=== PATIENT | male | born 1970 | race Caucasian/White ===

== ENCOUNTER 2017-02-26 18:29 | Emergency (ER) | payer SELFPAY ==
[2017-02-26 18:42] VITALS: BP 120/69
[2017-02-26] MEDS ORDERED: NORMAL SALINE 1000 ML 1,000 ML IV ONE (19:38)
--- NOTE | 2017-02-26 19:42 | ER Document Report ---
ED Medical Screen (RME) - General Chief Complaint: Abdominal Pain Stated Complaint: POSSIBLE UMBILICAL HERNIA Time Seen by Provider: 02/26/17 19:38 Notes: Patient was referred from his primary care physician secondary to an umbilical hernia that she could not fully reduce. Patient states he is eating normally. He says he has no vomiting. He says he did start to have umbilical pain about 2 days ago however and there was some "heat" around the area. He states the "heat" has now dissipated but he still has pain around this area. He states he has never been told he has an umbilical hernia before today. No fevers. Exam shows a firm nonreducible mass in the umbilicus. However since patient has normal vital signs, no fevers, is eating normally, has no vomiting, the mass is very small, there is no significant discoloration, there is no warmth, it seems unlikely that this is incarcerated bowel or even mesentery. TRAVEL OUTSIDE OF THE [place] IN LAST 30 DAYS: No - Related Data Allergies/Adverse Reactions: No Known Allergies Allergy (Verified 02/26/17 18:30) Past Medical History - Social History Frequency of alcohol use: Social Drug Abuse: None Renal/ Medical History: Denies: Hx Peritoneal Dialysis - Immunizations Hx Diphtheria, Pertussis, Tetanus Vaccination: Yes Physical Exam - Vital signs Vitals: Temp Pulse Resp BP Pulse Ox 98.2 F 84 15 120/69 90 L 02/26/17 18:42 02/26/17 18:42 02/26/17 18:42 02/26/17 18:42 02/26/17 18:42 Course - Vital Signs Vital signs: Temp Pulse Resp BP Pulse Ox 98.2 F 84 15 120/69 90 L 02/26/17 18:42 02/26/17 18:42 02/26/17 18:42 02/26/17 18:42 02/26/17 18:42
[2017-02-26 20:35] LABS: ABSOLUTE BASOPHILS # (AUTO) 0.1 10^3/uL (0.0-0.2); ABSOLUTE EOSINOPHILS # (AUTO) 0.2 10^3/uL (0.0-0.6); ABSOLUTE LYMPHOCYTES (AUTO) 3.1 10^3/uL (0.5-4.7); ABSOLUTE MONOCYTES (AUTO) 0.6 10^3/uL (0.1-1.4); ABSOLUTE NEUT (AUTO) 4.7 10^3/uL (1.7-8.2); BASOPHILS % (AUTO) 0.7 % (0-2); EOSINOPHILS % (AUTO) 2.2 % (0-6); HEMATOCRIT 45.4 % (37.9-51.0); HEMOGLOBIN 15.7 g/dL (13.5-17.0); HGB HCT DIFFERENCE 1.7; LYMPHOCYTES % (AUTO) 35.5 % (13-45); MEAN CORPUSCULAR HEMOGLOBIN 31.1 pg (27.0-33.4); MEAN CORPUSCULAR HGB CONC 34.7 g/dL (32.0-36.0); MEAN CORPUSCULAR VOLUME 90 fl (80-97); MONOCYTES % (AUTO) 6.7 % (3-13); RED BLOOD COUNT 5.06 10^6/uL (4.35-5.55); RED CELL DISTRIBUTION WIDTH 12.9 % (11.5-14.0); SEGMENTED NEUTROPHILS % (AUTO) 54.9 % (42-78); WHITE BLOOD COUNT 8.7 10^3/uL (4.0-10.5)
[2017-02-26 20:46] LABS: APPEARANCE,URINE CLEAR; BILIRUBIN,URINE NEGATIVE (NEGATIVE); GLUCOSE, URINE NEGATIVE (NEGATIVE); KETONES,URINE NEGATIVE (NEGATIVE); LEUKOCYTE ESTERASE,URINE NEGATIVE (NEGATIVE); NITRITE,URINE NEGATIVE (NEGATIVE); PROTEIN,URINE NEGATIVE (NEGATIVE); UROBILINOGEN,URINE NEGATIVE mg/dL (<2.0)
[2017-02-26 20:55] LABS: ALANINE AMINOTRANSFERASE 56 U/L (21-72); ALBUMIN 4.6 g/dL (3.5-5.0); ALKALINE PHOSPHATASE 65 U/L (38-126); ANION GAP 11 (5-19); ASPARTATE AMINO TRANSFERASE 32 U/L (17-59); BILIRUBIN,DIRECT 0.3 mg/dL (0.0-0.4); BILIRUBIN,TOTAL 0.6 mg/dL (0.2-1.3); BLOOD UREA NITROGEN 22 mg/dL (7-20); CALCIUM 9.7 mg/dL (8.4-10.2); CARBON DIOXIDE 29 mmol/L (22-30); CHLORIDE 103 mmol/L (98-107); GLUCOSE 107 mg/dL (75-110); POTASSIUM 4.7 mmol/L (3.6-5.0); SODIUM 143.4 mmol/L (137-145); TOTAL PROTEIN 7.1 g/dL (6.3-8.2)
--- NOTE | 2017-02-26 23:53 | RADIOLOGY REPORT (SQ) ---
Exam: CT abdomen pelvis with contrast. CLINICAL HISTORY: Abdominal pain. COMPARISON: None. TECHNIQUE: 100 mL [id number]. Limitations: None. FINDINGS: 2.7 cm inflamed umbilical fat only herniation. No significant free fluid. No obstruction. Small colonic diverticulosis. Normal appendix. Inferior chest, liver, spleen, adrenals, pancreas, gallbladder, renal system, gastrointestinal tract, pelvic organs, and musculoskeletal skeleton appear otherwise unremarkable. IMPRESSION: 1. Small inflammation associated with a 2.7 cm fat only umbilical hernia. 2. Small colonic diverticulosis.
--- NOTE | 2017-02-27 01:25 | ER Document Report ---
ED General - General Chief Complaint: Abdominal Pain Stated Complaint: POSSIBLE UMBILICAL HERNIA Time Seen by Provider: 02/26/17 19:38 Notes: Patient is a 46-year-old male who presents with 3-4 days of progressively worsening umbilical pain. Patient saw his primary care doctor today and was referred to the hospital for concerns of an incarcerated umbilical hernia. He does describe a constant, throbbing pain to the affected area. Touching the area worsens the pain. He has been trying naproxen with moderate improvement of the pain. He denies any history of similar symptoms in the past. He has not had any vomiting and notes that he continues to have bowel movements and pass flatus without any difficulty. He has not had any fever or constitutional symptoms. TRAVEL OUTSIDE OF THE [place] IN LAST 30 DAYS: No - Related Data Allergies/Adverse Reactions: No Known Allergies Allergy (Verified 02/26/17 18:30) Past Medical History - General Information source: Patient - Social History Smoking Status: Current Every Day Smoker Frequency of alcohol use: Social Drug Abuse: None Lives with: Spouse/Significant other Family History: Reviewed & Not Pertinent Patient has suicidal ideation: No Patient has homicidal ideation: No Renal/ Medical History: Denies: Hx Peritoneal Dialysis - Immunizations Hx Diphtheria, Pertussis, Tetanus Vaccination: Yes Review of Systems - Review of Systems Notes: Constitutional: Negative for fever. HENT: Negative for sore throat. Eyes: Negative for visual changes. Cardiovascular: Negative for chest pain. Respiratory: Negative for shortness of breath. Gastrointestinal: Positive for umbilical hernia pain Genitourinary: Negative for dysuria. Musculoskeletal: Negative for back pain. Skin: Negative for rash. Neurological: Negative for headaches, weakness or numbness. 10 point ROS negative except as marked above and in HPI. Physical Exam - Vital signs Vitals: Temp Pulse Resp BP Pulse Ox 98.2 F 84 15 120/69 90 L 02/26/17 18:42 02/26/17 18:42 02/26/17 18:42 02/26/17 18:42 02/26/17 18:42 Patient is not hypoxic and the number is recorded is inaccurate Interpretation: Normal Notes: PHYSICAL EXAMINATION: GENERAL: Well-appearing, well-nourished and in no acute distress. HEAD: Atraumatic, normocephalic. EYES: Pupils equal round and reactive to light, extraocular movements intact, sclera anicteric, conjunctiva are normal. ENT: nares patent, oropharynx clear without exudates. Moist mucous membranes. NECK: Normal range of motion, supple without lymphadenopathy LUNGS: Breath sounds clear to auscultation bilaterally and equal. No wheezes rales or rhonchi. HEART: Regular rate and rhythm without murmurs ABDOMEN: Soft, umbilical hernia is somewhat firm, red, painful to palpation, otherwise nontender, normoactive bowel sounds. No guarding, no rebound. No masses appreciated. EXTREMITIES: Normal range of motion, no pitting or edema. No cyanosis. NEUROLOGICAL: No focal neurological deficits. Moves all extremities spontaneously and on command. PSYCH: Normal mood, normal affect. SKIN: Warm, Dry, normal turgor, no rashes or lesions noted. Course - Re-evaluation Re-evalutation: 02/27/17 03:43 Patient presents with a fat-containing umbilical hernia no additional findings or concerns on exam. Clinical history and CT are not consistent with acute bowel obstruction or incarcerated portion of bowel. Conservative management has been recommended At this time will discharge with return precautions and follow-up recommendations. Verbal discharge instructions given a the bedside and opportunity for questions given. Medication warnings reviewed. Patient is in agreement with this plan and has verbalized understanding of return precautions and the need for primary care follow-up in the next 24-72 hours.. - Vital Signs Vital signs: Temp Pulse Resp BP Pulse Ox 98.2 F 84 15 120/69 90 L 02/26/17 18:42 02/26/17 18:42 02/26/17 18:42 02/26/17 18:42 02/26/17 18:42 - Laboratory Result Diagrams: 02/26/17 20:20 02/26/17 20:20 Laboratory results interpreted by me: 02/26/17 20:20 BUN 22 H - Diagnostic Test Radiology reviewed: Reports reviewed Discharge - Discharge Clinical Impression: Umbilical hernia Qualifiers: Obstruction and gangrene presence: without obstruction or gangrene Qualified Code(s): K42.9 - Umbilical hernia without obstruction or gangrene Condition: Good Disposition: HOME, SELF-CARE Additional Instructions: The hernia contains only fat tissue. This area will continue to be mildly uncomfortable for approximately 1-2 weeks and then should improve. You may apply a cool compress to the area and take NSAIDs such as ibuprofen 600 mg every 6 hours as needed for discomfort. Please follow-up with your primary care doctor. Return if you have persistent vomiting, worsening pain, or have any other symptoms that are worrisome to you.
== END 2017-02-27 01:51 | disposition home or self-care (01) ==
LOC: ER 18:29
DX: K42.9 Umbilical hernia without obstruction or gangrene (principal); R10.9 Unspecified abdominal pain; F17.200 Nicotine dependence, unspecified, uncomplicated
CPT/HCPCS: 99284; 96360; 36415; 85025; 80053; 81001; 74177; J7030